=== PATIENT | female | born 1975 | race Caucasian/White ===

== ENCOUNTER → 2016-12-12 | Outpatient (CLI) | payer BC | END | disposition home or self-care (01) | LOC: LABWHC1 08:29 | PROVIDERS: ATTEND Internal Medicine Endocrinology, Diabetes & Metabolism | DX: E03.8 Other specified hypothyroidism (principal) | CPT/HCPCS: 36415; 84443 ==

== ENCOUNTER → 2017-02-06 | Outpatient (CLI) | payer BC ==
--- NOTE | 2017-02-06 22:22 | US ---
EXAMINATION TYPE: US pelvis complete transvag DATE OF EXAM: 02/06/2017 COMPARISON: NONE CLINICAL HISTORY: 42-year-old female [id number] IUD PLACEMENT. IUD placement 7 years ago, doctor was unable to feel strings TECHNIQUE: Transvaginal (TV) and Transabdominal (TA) Date of LMP: 7 years ago FINDINGS: Uterus: Anteverted measuring 10.6 x 5.0 x 5.3 cm. Small cervical nabothian cysts are present measur ing up to 5 mm. There is slight contour deformity along the anterior lower uterine segment. An IUD ap pears situated along the uterine cavity. Endometrial Stripe: 0.5 cm Right Ovary: 3.5 x 2.1 x 2.2 cm with an 8 mm hyperechoic area that could represent calcification, sm all hemorrhagic cyst, or a small dermoid. Additional 1.6 cm crenulated structure probably a corpus amy teum. Left Ovary: 3.3 x 2.1 x 2.1 cm with follicular change. Small amount of right adnexal free fluid adjacent to the ovary. IMPRESSION: 1. An IUD is visualized and appears situated within the uterine cavity. 2. Findings suggest a prior scar. Clinically correlate. 3. Some changes in the right ovary as above. Small amount of adjacent right adnexal free fluid.
== END | disposition home or self-care (01) ==
LOC: RADUSWWP 15:06
PROVIDERS: ATTEND Obstetrics & Gynecology
DX: R93.8 Abnormal findings on diagnostic imaging of other specified body structures (principal); Z97.5 Presence of (intrauterine) contraceptive device
CPT/HCPCS: 76830; 76856